=== PATIENT | female | born 1965 | race African-American/Black ===

== ENCOUNTER 2019-07-02 08:53 | Outpatient (CLI) | payer OTHER ==
--- NOTE | 2019-07-04 10:40 | Mammography Report ---
DIGITAL SCREENING MAMMOGRAM WITH CAD, 07/02/2019 INDICATION: Routine screening mammography. TECHNIQUE: Digital bilateral 2D mammography was obtained in the craniocaudal and mediolateral obliq ue projections without and with implant displacement. This examination was interpreted with the benef it of Computer-Aided Detection analysis. COMPARISON: None. FINDINGS: Breast Density: The breasts are heterogeneously dense, which may obscure small masses. There is no evidence of dominant mass, suspicious calcifications or architectural distortion in eithe r breast. Bilateral subpectoral implants in place. IMPRESSION: No mammographic evidence of malignancy. Follow up recommendation: Routine yearly BI-RADS Category 1: Negative. A "normal" or negative report should not discourage follow up or biopsy of a clinically significant f inding. A written summary of these findings will be mailed to the patient. The patient will be entered into a mammography reporting system which will generate a reminder letter for the patient's next appointmen t at the appropriate interval. The [employer] recommends yearly mammograms starting at age 40 and continuing as l shaye as a woman is in good health. Breast MRI is recommended for women with an approximate 20-25% or greater lifetime risk of breast cancer, including women with a strong family history of breast or ova jabier cancer or who have been treated for Hodgkin's disease. Signer Name: Juan Antonio Pedro MD Signed: 07/04/2019 10:35 AM Workstation Name: [id number]
== END 2019-07-02 08:54 | disposition home or self-care (01) ==
LOC: MAMMO 08:53
DX: Z12.31 Encounter for screening mammogram for malignant neoplasm of breast (principal)
CPT/HCPCS: 77067

== ENCOUNTER 2020-07-07 11:27 | Outpatient (CLI) | payer OTHER ==
--- NOTE | 2020-07-08 09:57 | Mammography Report ---
DIGITAL SCREENING MAMMOGRAM WITH CAD, 07/07/2020 INDICATION: Routine screening mammography. TECHNIQUE: Digital bilateral 2D mammography was obtained in the craniocaudal and mediolateral obliq ue projections. This examination was interpreted with the benefit of Computer-Aided Detection analysi s. COMPARISON: 07/02/2019 FINDINGS: Breast Density: There are scattered areas of fibroglandular density. There is no evidence of dominant mass, suspicious calcifications or architectural distortion in eithe r breast. Retropectoral silicone implants are intact. IMPRESSION: Follow up recommendation: Routine yearly BI-RADS Category 2: Benign. A "normal" or negative report should not discourage follow up or biopsy of a clinically significant f inding. A written summary of these findings will be mailed to the patient. The patient will be entered into a mammography reporting system which will generate a reminder letter for the patient's next appointmen t at the appropriate interval. The [employer] recommends yearly mammograms starting at age 40 and continuing as l shaye as a woman is in good health. Breast MRI is recommended for women with an approximate 20-25% or greater lifetime risk of breast cancer, including women with a strong family history of breast or ova jabier cancer or who have been treated for Hodgkin's disease. Signer Name: Wes Fernandez MD Signed: 07/08/2020 8:50 AM Workstation Name: [id number]
== END 2020-07-07 11:28 | disposition home or self-care (01) ==
LOC: MAMMO 11:27
PROVIDERS: ATTEND Family Medicine
DX: Z12.31 Encounter for screening mammogram for malignant neoplasm of breast (principal)
CPT/HCPCS: 77067

== ENCOUNTER 2021-07-21 12:56 | Outpatient (CLI) | payer OTHER ==
--- NOTE | 2021-07-22 14:36 | Mammography Report ---
DIGITAL SCREENING MAMMOGRAM WITH CAD, 07/21/2021 CLINICAL INFORMATION / INDICATION: Routine screening mammography. TECHNIQUE: Digital bilateral 2D mammography was obtained in the craniocaudal and mediolateral obliqu e projections. This examination was interpreted with the benefit of Computer-Aided Detection analysis . COMPARISON: 07/07/2020, 07/02/2019 FINDINGS: Breast Density: There are scattered areas of fibroglandular density. No dominant mass, suspicious calcifications, or architectural distortion in either breast. Bilateral silicone retropectoral breast implants are present. Overall, no interval change. IMPRESSION: No mammographic evidence of malignancy. Follow up recommendation: Routine yearly BI-RADS Category 2: Benign. A "normal" or negative report should not discourage follow up or biopsy of a clinically significant f inding. A written summary of these findings will be mailed to the patient. The patient will be entered into a mammography reporting system which will generate a reminder letter for the patient's next appointmen t at the appropriate interval. The [employer] recommends yearly mammograms starting at age 40 and continuing as l shaye as a woman is in good health. Breast MRI is recommended for women with an approximate 20-25% or greater lifetime risk of breast cancer, including women with a strong family history of breast or ova jabier cancer or who have been treated for Hodgkin's disease. Signer Name: Analisa Goldstein MD Signed: 07/22/2021 2:32 PM Workstation Name: [id number]
== END 2021-07-21 12:57 | disposition home or self-care (01) ==
LOC: MAMMO 12:56
PROVIDERS: ATTEND Family Medicine
DX: Z12.31 Encounter for screening mammogram for malignant neoplasm of breast (principal)
CPT/HCPCS: 77067